=== PATIENT | male | born 1985 | race Caucasian/White ===

== ENCOUNTER 2016-10-19 11:56 | Emergency (ER) | payer BC ==
[2016-10-19] MEDS ORDERED: ASPIRIN 81 MG CHEW TAB ONE (12:20)
[2016-10-19] MEDS ORDERED: NITROGLYCERIN SL 0.4 MG TAB SL ONE (12:55)
[2016-10-19] MEDS ORDERED: DILAUDID 1 MG/ML AMP ONE (13:09)
[2016-10-19] MEDS ORDERED: ONDANSETRON 4 MG VIAL ONE (13:09)
[2016-10-19] MEDS ORDERED: KETOROLAC 30 MG/ML VIAL ONE (15:33)
== END 2016-10-19 17:52 | disposition home or self-care (01) ==
LOC: ER 11:56
DX: R07.2 Precordial pain (principal); F17.200 Nicotine dependence, unspecified, uncomplicated
CPT/HCPCS: 36415; 71010; 80053; 80307; 81003; 82550; 83735; 84484; 85025; 85610; 85730; 93005; 96374; 96375